=== PATIENT | male | born 1960 | race Two or more races ===

== ENCOUNTER → 2020-01-18 | Outpatient (CLI) | payer OTHER | END | disposition home or self-care (01) | LOC: RAD 14:37 | PROVIDERS: ATTEND Physician Assistant Medical | DX: R22.32 Localized swelling, mass and lump, left upper limb (principal); M79.622 Pain in left upper arm ==

== ENCOUNTER 2020-07-29 14:56 | Inpatient (IN) | payer OTHER ==
[~2020-07-29] VITALS: Ht 162.6 cm; Wt 99.0 kg
[2020-07-29] MEDS ORDERED: ONDANSETRON 2MG/ML, 2ML IVPush ONE (15:30)
[2020-07-29] MEDS ORDERED: SODIUM CHLORIDE FLUSH 10ML SYR IVF ONE (15:30)
[2020-07-29] MEDS ORDERED: MORPHINE SULFATE 4 MG/ML, 1ML IVPush PRN (15:30)
[2020-07-29 15:35] LABS: BASOPHILS % (AUTO) 0 % (0-1); EOSINOPHILS # (AUTO) 0.02 x10^3/uL (0-0.4); EOSINOPHILS % (AUTO) 0 % (1-7); LYMPHOCYTES # (AUTO) 0.94 x10^3/uL (1-3.4); LYMPHOCYTES % (AUTO) 7 % (22-44); MD NO; MEAN CORPUSCULAR HEMOGLOBIN 30.7 pg (27.5-34.5); MEAN CORPUSCULAR HGB CONC 33.8 g/dL (33.2-36.2); MEAN CORPUSCULAR VOLUME 90.8 fL (81-97); MEAN PLATELET VOLUME 9.5 fL (7.4-10.4); MONOCYTES # (AUTO) 0.67 x10^3/uL (0.2-0.8); MONOCYTES % (AUTO) 5 % (2-9); NEUTROPHILS # (AUTO) 12.02 x10^3/uL (1.8-6.8); NEUTROPHILS % (AUTO) 88 % (42-75); PLATELET COUNT 220 x10^3/uL (130-400); RED BLOOD COUNT 5.99 x10^6/uL (4.38-5.82)
[2020-07-29] MEDS ORDERED: ONDANSETRON 2MG/ML, 2ML ONE (15:35)
[2020-07-29] MEDS ORDERED: MORPHINE SULFATE 4 MG/ML, 1ML ONE (15:36)
[2020-07-29 15:49] LABS: ALANINE AMINOTRANSFERASE 48 U/L (12-78); ALBUMIN 5.1 g/dL (3.4-5.0); ANION GAP 14 mmol/L (5-15); CALCIUM 11.3 mg/dL (8.5-10.1); CHLORIDE 102 mmol/L (98-107)
[2020-07-29 15:51] LABS: ALKALINE PHOSPHATASE 76 U/L (45-117); BILIRUBIN,TOTAL 0.8 mg/dL (0.2-1.0); CREATININE 1.18 mg/dL (0.7-1.3); TOTAL PROTEIN 9.9 g/dL (6.4-8.2); TROPONIN I < 0.015 ng/mL (0.000-0.045)
[2020-07-29] MEDS ORDERED: OMNIPAQUE 350 MG/ML, 100ML BOTTLE ONE (16:54)
[2020-07-29] MEDS ORDERED: SODIUM CHLORIDE 0.9% 1,000 ML IV ONE (17:43)
[2020-07-29] MEDS ORDERED: SODIUM CHLORIDE FLUSH 10ML SYR IVF PRN (18:00)
[2020-07-29] MEDS: BISACODYL 10 MG SUPP PR SCH (18:15)
[2020-07-29] MEDS ORDERED: morphine SULFATE 10 MG/ML, 1ML IVPush PRN (18:30)
[2020-07-29] MEDS ORDERED: ONDANSETRON 2MG/ML, 2ML IVPush PRN (18:30)
[2020-07-29 19:12] VITALS: BP 123/72
[2020-07-29] MEDS: SODIUM CHLORIDE 0.9% 1,000 ML IV SCH (19:35)
[2020-07-30 00:35] VITALS: BP 119/71
[2020-07-30] MEDS: SODIUM CHLORIDE 0.9% 1,000 ML IV SCH ×3 (02:17→19:58)
[2020-07-30 05:17] LABS: ANION GAP 6 mmol/L (5-15); CALCIUM 8.2 mg/dL (8.5-10.1); CHLORIDE 109 mmol/L (98-107); CREATININE 0.93 mg/dL (0.7-1.3)
[2020-07-30 05:32] LABS: BASOPHILS # (AUTO) 0.02 x10^3/uL (0-0.1); BASOPHILS % (AUTO) 0 % (0-1); EOSINOPHILS # (AUTO) 0.07 x10^3/uL (0-0.4); EOSINOPHILS % (AUTO) 1 % (1-7); LYMPHOCYTES # (AUTO) 1.43 x10^3/uL (1-3.4); LYMPHOCYTES % (AUTO) 26 % (22-44); MD NO; MEAN CORPUSCULAR HEMOGLOBIN 30.7 pg (27.5-34.5); MEAN CORPUSCULAR VOLUME 92.9 fL (81-97); MEAN PLATELET VOLUME 9.2 fL (7.4-10.4); MONOCYTES % (AUTO) 11 % (2-9); NEUTROPHILS # (AUTO) 3.47 x10^3/uL (1.8-6.8); NEUTROPHILS % (AUTO) 62 % (42-75); PLATELET COUNT 205 x10^3/uL (130-400); RED BLOOD COUNT 4.81 x10^6/uL (4.38-5.82); RED CELL DISTRIBUTION WIDTH 14.6 % (9.4-14.8)
[2020-07-30] MEDS: BISACODYL 10 MG SUPP PR SCH (07:33)
[2020-07-30 10:15] VITALS: BP 120/74
[2020-07-30 10:47] LABS: MICROSCOPIC NOT IND
[2020-07-30 12:42] VITALS: BP 130/77
[2020-07-30] MEDS: ENOXAPARIN 40 MG/0.4 ML SQ SCH (14:17)
[2020-07-30 18:55] VITALS: BP 122/72
[2020-07-31 00:29] VITALS: BP 141/82
[2020-07-31] MEDS: SODIUM CHLORIDE 0.9% 1,000 ML IV SCH ×3 (03:50→22:54)
[2020-07-31 05:09] LABS: BASOPHILS # (AUTO) 0.02 x10^3/uL (0-0.1); BASOPHILS % (AUTO) 0 % (0-1); EOSINOPHILS % (AUTO) 2 % (1-7); LYMPHOCYTES # (AUTO) 1.69 x10^3/uL (1-3.4); LYMPHOCYTES % (AUTO) 27 % (22-44); MD NO; MEAN CORPUSCULAR HEMOGLOBIN 30.6 pg (27.5-34.5); MEAN CORPUSCULAR HGB CONC 33.2 g/dL (33.2-36.2); MEAN CORPUSCULAR VOLUME 92.4 fL (81-97); MEAN PLATELET VOLUME 9.3 fL (7.4-10.4); MONOCYTES # (AUTO) 0.53 x10^3/uL (0.2-0.8); MONOCYTES % (AUTO) 9 % (2-9); NEUTROPHILS # (AUTO) 3.87 x10^3/uL (1.8-6.8); NEUTROPHILS % (AUTO) 62 % (42-75); PLATELET COUNT 185 x10^3/uL (130-400); RED BLOOD COUNT 4.68 x10^6/uL (4.38-5.82); RED CELL DISTRIBUTION WIDTH 14.2 % (9.4-14.8)
[2020-07-31 05:18] LABS: CHLORIDE 110 mmol/L (98-107)
[2020-07-31 05:21] LABS: ANION GAP 10 mmol/L (5-15); CALCIUM 7.7 mg/dL (8.5-10.1); CREATININE 0.78 mg/dL (0.7-1.3)
[2020-07-31 05:22] LABS: ALBUMIN 3.2 g/dL (3.4-5.0)
[2020-07-31] MEDS: BISACODYL 10 MG SUPP PR SCH (07:36)
[2020-07-31 07:55] VITALS: BP 153/80
[2020-07-31] MEDS ORDERED: POTASSIUM CHLORIDE 20 MEQ in SODIUM CHLORIDE 0.9% 250 ML IV ONE (10:00)
[2020-07-31] MEDS ORDERED: MAGNESIUM SULFATE PMX 4GM/100M 100 ML IVPB SCH (10:00)
[2020-07-31] MEDS ORDERED: MAGNESIUM SULFATE PMX 2GM/50ML 50 ML IV ONE ×2 (10:00)
[2020-07-31] MEDS: ENOXAPARIN 40 MG/0.4 ML SQ SCH (13:49)
[2020-07-31 14:01] VITALS: BP 143/75
[2020-07-31 20:44] VITALS: BP 154/80
[2020-08-01 03:17] VITALS: BP 152/78
[2020-08-01] MEDS: SODIUM CHLORIDE 0.9% 1,000 ML IV SCH (07:00)
[2020-08-01 08:07] VITALS: BP 157/77
[2020-08-01] MEDS: BISACODYL 10 MG SUPP PR SCH (09:00)
[2020-08-01] MEDS ORDERED: ERGO500017 PO (09:55)
== END 2020-08-01 11:15 | disposition home or self-care (01) | DRG 390 ==
LOC: ED 16:56 → EDIP 17:43 → 3N 19:00 → DCLOUNGE 08-01 11:15
PROVIDERS: ADMIT Family Medicine; ATTEND Hospitalist
PROC: 0D9670Z Drainage of Stomach with Drainage Device, Via Natural or Artificial Opening (ICD-10-PCS; principal; 2020-07-29)
DX: K56.601 Complete intestinal obstruction, unspecified as to cause (principal); D75.1 Secondary polycythemia; G47.33 Obstructive sleep apnea (adult) (pediatric); D72.829 Elevated white blood cell count, unspecified; E83.52 Hypercalcemia; K66.0 Peritoneal adhesions (postprocedural) (postinfection)
CPT/HCPCS: 36415; 74018; 74177; 74250; 80048; 80053; 80069; 81003; 82306; 83690; 83735; 83970; 84484; 85025; 93005; 94660; 96374; 96375; G0378; J1650; J2405; J3480; Q9967; J2270; J3475; J7030; J7050

== ENCOUNTER → 2021-03-13 | Outpatient (CLI) | payer OTHER ==
[~2021-03-13] MED LIST: ERGO500017 PO
== END | disposition home or self-care (01) ==
LOC: RAD 09:37
PROVIDERS: ATTEND Family Medicine
DX: M20.12 Hallux valgus (acquired), left foot (principal)

== ENCOUNTER 2021-03-21 18:25 | Emergency (ER) | payer OTHER ==
[~2021-03-21] VITALS: Ht 157.5 cm; Wt 99.0 kg
[2021-03-21 18:38] VITALS: BP 145/70
--- NOTE | 2021-03-21 19:47 | NUR ---
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
[2021-03-21] MEDS ORDERED: HYDROcodone/APAP 5/325 TABLET ONE (21:20)
[2021-03-21] MEDS ORDERED: HYDROcodone/APAP 5/325 TABLET PO ONE (21:30)
== END 2021-03-21 22:20 ==
LOC: ED 20:00
DX: G89.11 Acute pain due to trauma (principal); M25.562 Pain in left knee; X58.XXXA Exposure to other specified factors, initial encounter; Y93.89 Activity, other specified; Y92.89 Other specified places as the place of occurrence of the external cause; Y99.8 Other external cause status
CPT/HCPCS: 29505; 99283